=== PATIENT | male | born 1970 | race Caucasian/White ===

== ENCOUNTER 2019-10-04 08:19 | Outpatient (CLI) | payer OTHER, SELFPAY ==
--- NOTE | 2019-10-04 08:26 | ECG_ITS ---
Measurements Intervals [place] Rate: 61 P: 32 LA: 180 QRS: -19 QRSD: 121 T: 56 QT: 404 QTc: 408 Interpretive Statements SINUS RHYTHM RIGHT BUNDLE BRANCH BLOCK BASELINE ARTIFACT- I, II, III, AVR, AVL, AVF ABNORMAL ECG Electronically Signed On 10-04-2019 8:40:03 [employer]NAGER by Александр Rahman D.O.
== END 2019-10-04 08:20 | disposition home or self-care (01) ==
LOC: ANHSURGERY 08:26
PROVIDERS: PCP Family Medicine; Visit Provider Surgery
DX: E78.5 Hyperlipidemia, unspecified (principal); R94.31 Abnormal electrocardiogram [ECG] [EKG]
CPT/HCPCS: 93005

== ENCOUNTER 2019-10-13 00:15 | Day surgery (SDC) | payer OTHER, SELFPAY ==
[2019-09-30 10:27] VITALS: BMI 28.7
--- NOTE | 2019-10-12 17:01 | PM.SD ---
Same Day Admit/Disch: HPI History of Present Illness Chief complaint: Umbilical Hernia Narrative: Abelardo Gregory Jr. is a 49 year old male who is had a painful umbilical bulge for over a year. He was seen in the office and found to have a non reducible umbilical hernia. He is taken to surgery now for repair with mesh. 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 Same Day Admit/Disch: Med Pre-admit Medications Home Medications Medication Instructions Recorded Confirmed Type atorvastatin 20 mg tablet 20 mg PO DAILY 08/24/19 09/30/19 History levothyroxine 112 mcg tablet 112 mcg PO DAILY 08/24/19 09/30/19 History hydrocodone-acetaminophen 1 - 2 tablet PO Q6H PRN #10 tablet 10/13/19 Rx ketorolac 10 mg PO Q6H 4 Days #16 tablet 10/13/19 Rx Exam Const: General: comfortable, no acute distress, alert and awake HENMT: Head: normocephalic and atraumatic Mouth: Yes Normal oral and palatal mucosa present Eyes: Conjunctivae: conjunctivae normal Pupils: Equal, round and reactive pupils present EOM: EOMs intact bilaterally Neck: Neck: normal visual inspection, no lymphadenopathy and nontender Resp: Effort & Inspection: normal respiratory effort Auscultation: clear to auscultation bilaterally Cardio: Rate: regular rate Rhythm: regular rhythm Heart sounds: no gallops, no murmurs and no rubs GI: Inspection: non-distended and visible herniation (Umbilical) GI Palp: Yes Soft to palpation, No Tenderness to palpation present (GI), No Hepatomegaly present, No Splenomegaly present and Yes Hernia present (Non reducible umbilical hernia) Auscultation: normal bowel sounds Skin: Lesions: no lesions Rashes: no rashes Neuro: General: no focal motor deficits and CN's II-XI intact bilaterally Cranial nerves: Yes Equal, round and reactive pupils present, Yes Bilaterally intact EOM present, Yes facial symmetry and Yes Midline tongue present Speech: normal speech Motor exam (neuro): 5/5 motor strength present throughout and Motor abnormalities not present Extrem: General: no clubbing, cyanosis or edema and edema Psych: Affect: normal affect Thought process: Normal thought process present Insight: Good insight present (Psych) DS: Summary Time Spent with Patient Time attestation: Total time spent providing and/or coordinating discharge services: DS: Diagnosis Admitting Diagnosis Admitting Diagnosis: Hyperlipidemia, unspecified Discharge Diagnosis (1) Umbilical hernia with obstruction but no gangrene: Code(s): K42.0 - Umbilical hernia with obstruction, without gangrene Status: Chronic Assessment and Plan: Plan to proceed with umbilical hernia repair with underlay mesh. The procedure the risks the benefits have been discussed with the patient. The usual recovery time is been discussed. All questions were answered. He understands and agrees to go ahead. (2) History of Graves' disease: Code(s): Z86.39 - Personal history of other endocrine, nutritional and metabolic disease Status: Chronic Discharge Plan Discharge Patient Disposition: Home, Self-Care Discharge Instructions: 1. May shower the day after surgery over incision. 2. Call office for: -Wound increasingly painful or bleeding -Vomiting -Fever of greater than 101 degrees 3. Expect some blood on dressing or on skin. 4. If no bowel movement for three days, take 1 oz. (30 ml) Milk of Magnesia; if no results, take Fleets en
--- NOTE | 2019-10-13 10:26 | WPDHPUPDATE1 ---
History and Physical Update Update Date/Time: 10/13/19 10:26 History and Physical has been reviewed, including an updated exam of the patient. There are NO changes in the patient's condition. Risks, benefits, and alternatives have been discussed and questions answered. Patient agrees to proceed with procedure.
[2019-10-13 12:00] VITALS: BP 112/78; PULSE 70; RESP 18; TEMP 36.6; O2SAT 94
[2019-10-13] MEDS: LACTATED RINGERS 1,000 ML 30 ML IV CONT (12:00)
--- NOTE | 2019-10-13 13:28 | WPDANESEPPF ---
Anes - Initial Pre Proc Eval Procedure: Operation Date: 10/13/19 13:00 Proposed Procedures p Umbilical Hernia Repair With Mesh - Jose Guadalupe Leary MD Date/Time: 10/13/19 13:28 Surgeon: Jose Guadalupe Leary MD Pre Op Diagnosis: Umbilical Hernia Patient Data Age: 49 Gender: M Height: 1.78 m Weight: 89.9 kg Last Vital Signs Temp 36.6 C 10/13/19 12:00 Pulse 70 10/13/19 12:00 Resp 18 10/13/19 12:00 BP 112/78 10/13/19 12:00 Pulse Ox 94 10/13/19 12:00 Allergies Allergy/AdvReac Type Severity Reaction Status Date / Time No Known Allergies Allergy Verified 10/13/19 12:30 Home Medications Medication Instructions Recorded Confirmed Type atorvastatin 20 mg tablet 20 mg PO DAILY 08/24/19 09/30/19 History levothyroxine 112 mcg tablet 112 mcg PO DAILY 08/24/19 09/30/19 History Patient hx anesthesia problems: none Family hx anesthesia problems: none [facility] Past Medical History Medical History (Updated 10/13/19 @ 13:28 by Salas Lisa DO) Graves disease Hyperlipemia Hypothyroidism Mitral valve prolapse Surgical History Surgical History History of hernia surgery right side with mesh History of nasal surgery Social History Social History Years smoked: 27 Smoking status: Former smoker Alcohol intake: current Additional occupation/education comments: marine electrician [employer] - Eval Final PreProcedure Day of Procedure 10/13/19 13:28 Patient weight: overweight Heart: regular rate and rhythm Lungs: clear to auscultation and normal air movement Airway: Mallampati scale class II Neurological: alert and oriented Last oral intake: >/= 8 hours ASA classification: II Emergent: no Anesthetic plan: proceed Anesthesia type and monitoring: general GIVS and standard monitoring Informed Consent: The patient's anesthetic plan and its attendant risks and benefits were discussed with the patient/family/POA. Questions were solicited and answers provided to the satisfaction of the patient/family/POA.
[2019-10-13] MEDS: IBUPROFEN IV 800 MG/200 ML 800 MG/200 ML BAG 400 MG IVPB (14:08)
[2019-10-13] MEDS: ceFAZolin 2 GM/D5W 50 ML 2 GM/50 ML BAG IVPB (14:08)
--- NOTE | 2019-10-13 15:05 | PM.PROC ---
Procedure Note - Detailed Date of procedure: 10/13/19 Pre-op diagnosis: Umbilical Hernia Umbilical hernia Post-op diagnosis: same Procedure performed: Umbilical hernia repair with 6.6 cm Parietex underlay mesh Description of procedure: Patient was taken to the operating room and IV sedation was administered. Prep and drape was carried out. The proposed incision along the upper margin of the umbilicus was marked on the skin. Local anesthetic was infiltrated into the skin and the deeper subcutaneous tissues. Incision was made and dissection was carried down through the skin and to the hernia sac. The sac was then dissected free from the umbilical skin and the surrounding subcutaneous tissues. It was dissected down to its neck. Additional local anesthetic was infiltrated into the neck and the fascia surrounding the neck of the hernia sac. The sac was then amputated at its neck. The subcutaneous was undermined around the hernia defect. Additional local was infiltrated around the fascia. I placed a finger inside the hernia defect and checked for any abdominal wall adhesions in the area. None were found. No other hernias were noted. A 6.6 cm Parietex lone [place] was chosen. It was folded and placed in the defect. Once it symmetrically covered the defect, I placed cranial and caudal transfascial sutures of 0 Ethibond. These sutures were placed in such a fashion that, when tied, they would advance the edges of the hernia defect towards 1 another. These sutures were tied and had the desired effect. I then closed the hernia defect with [id number] mattress sutures of 0 Ethibond. The repair looked quite satisfactory. I then infiltrated additional local all around the areas of the repair. The umbilical skin was tacked to the fascia with 3 0 Vicryl suture. The subcutaneous was closed with 3 0 Vicryl. Subcuticular interrupted 4 O Vicryl skin stitches were placed. The skin was then closed with running 4 0 Monocryl subcuticular suture. Wound was dressed with Exofin surgical adhesive. The patient was awakened and taken to recovery in good condition. Counts were correct x2. Implants: 6.6 cm Parietex hernia mesh Anesthesia: MAC and local (0.5% Marcaine with Exparel) Surgeon: Jose Guadalupe Leary MD Palliative Care Physician: Mary TOMPKINS Estimated blood loss (mL): 5 Drains: No Packing: No Pathology: none sent Complications: None Condition: stable Disposition: same day Findings: 18 millimeter hernia defect
[2019-10-13 15:13] VITALS: BP 114/64; PULSE 58; RESP 16; O2SAT 91
[2019-10-13 15:40] VITALS: BP 102/76; PULSE 65; RESP 16; O2SAT 90
[2019-10-13 16:10] VITALS: BP 106/78; PULSE 54; RESP 16; O2SAT 95
== END 2019-10-13 16:28 | disposition home or self-care (01) ==
PROVIDERS: PCP Family Medicine; Visit Provider Surgery
PROC: (CPT 49585; principal; 2019-10-13 13:00)
DX: K42.9 Umbilical hernia without obstruction or gangrene (principal); E78.5 Hyperlipidemia, unspecified; E05.00 Thyrotoxicosis with diffuse goiter without thyrotoxic crisis or storm; I34.1 Nonrheumatic mitral (valve) prolapse; Z87.891 Personal history of nicotine dependence
CPT/HCPCS: 49585; C1781; C9290; J0690; J1100; J1741; J2250; J2405; J2704; J3010; J7120

== ENCOUNTER 2019-11-15 09:34 | Outpatient (CLI) | payer OTHER, SELFPAY ==
[2019-11-15 10:18] LABS: Cholesterol 168 mg/dL (0-200); HDL Direct 46 mg/dL; Triglycerides 106 mg/dL (<150)
[2019-11-15 10:29] LABS: LDL Cholesterol Direct 102 mg/dL
[2019-11-15 10:44] LABS: Free T4 Free Thyroxine 1.39 ng/mL (0.78-2.19)
== END 2019-11-15 09:35 | disposition home or self-care (01) ==
LOC: ANHIMG 09:41
PROVIDERS: PCP Family Medicine; Visit Provider Internal Medicine Endocrinology, Diabetes & Metabolism
DX: E89.0 Postprocedural hypothyroidism (principal); E78.00 Pure hypercholesterolemia, unspecified
CPT/HCPCS: 36415; 80061; 84439; 84443

== ENCOUNTER 2020-11-18 07:02 | Outpatient (CLI) | payer OTHER, SELFPAY ==
[2020-11-18 07:44] LABS: Cholesterol 157 mg/dL (0-200); HDL Direct 54 mg/dL; Triglycerides 80 mg/dL (<150)
[2020-11-18 07:55] LABS: LDL Cholesterol Direct 84 mg/dL
[2020-11-18 08:21] LABS: Free T4 Free Thyroxine 1.22 ng/mL (0.78-2.19)
== END 2020-11-18 07:03 | disposition home or self-care (01) ==
PROVIDERS: PCP Family Medicine; Visit Provider Internal Medicine Endocrinology, Diabetes & Metabolism
DX: E78.00 Pure hypercholesterolemia, unspecified (principal); E89.0 Postprocedural hypothyroidism
CPT/HCPCS: 36415; 80061; 84439; 84443